=== PATIENT | female | born 1940 | race Caucasian/White ===

== ENCOUNTER 2016-12-13 15:47 | Emergency (ER) | payer MEDICARE, OTHER ==
[~2016-12-13] VITALS: Ht 162.6 cm; Wt 62.6 kg
--- NOTE | 2016-12-13 15:59 | NUR ---
Pt states she went to her neurologist due to increasing forgetfulness, wants to get CT. Pt denies CP, SOB, vision changes, MENDEZ, dizziness, n/v, no other complaints, no distress noted.
--- NOTE | 2016-12-13 17:10 | NUR ---
Patient discharged to home in stable conditon. Written and verbal after care instructions given. Patient verbalizes understanding of instructions. pt walked out of er unassisted with belongings at side...
[2016-12-13 17:11] VITALS: BP 117/73
== END 2016-12-13 17:12 | disposition home or self-care (01) ==
LOC: ER 15:51
DX: R41.3 Other amnesia (principal); I67.82 Cerebral ischemia; Z90.710 Acquired absence of both cervix and uterus; R51 Headache
CPT/HCPCS: 70450; A4663

== ENCOUNTER 2016-12-22 14:26 | Emergency (ER) | payer MEDICARE, OTHER ==
[~2016-12-22] VITALS: Ht 162.6 cm; Wt 59.0 kg
[2016-12-22 15:01] LABS: *BILIRUBIN,URIN NEGATIVE (NEGATIVE); *BLOOD, URINE 3+ (NEGATIVE); *CLARITY,URINE CLOUDY (CLEAR); *KETONES,URINE NEGATIVE (NEGATIVE); *UROBILINOGEN,URINE 0.2 E.U./dl (NORMAL); LEUKOCYTE ESTERASE ,URINE 3+ (NEGATIVE); NITRITE, URINE NEGATIVE (NEGATIVE); UGLUCOSE NEGATIVE (NEGATIVE)
[2016-12-22 15:17] LABS: *COLOR,URINE Brown (YELLOW); *PROTEIN,URINE 3+ (NEGATIVE)
[2016-12-22 15:18] LABS: BACTERIA,URINE MODERATE /HPF (NONE SEEN); RBC,URINE TNTC /HPF (0-3); SQUAMOUS EPITHELIAL CELL,UR MANY /HPF (NONE SEEN); WBC,URINE TNTC /HPF (0-3)
--- NOTE | 2016-12-22 15:26 | NUR ---
Patient discharged to home in stable conditon. Written and verbal after care instructions given. Patient verbalizes understanding of instructions.
[2016-12-22 15:27] VITALS: BP 117/85
== END 2016-12-22 15:29 | disposition home or self-care (01) ==
LOC: ER 14:26
DX: N39.0 Urinary tract infection, site not specified (principal)
CPT/HCPCS: 81001; 87086; 99284; A4663

== ENCOUNTER 2018-01-19 15:29 | Inpatient (IN) | payer MEDICARE, OTHER ==
[~2018-01-19] VITALS: Ht 162.6 cm; Wt 65.8 kg
[2018-01-19] MEDS ORDERED: [UNRECOGNIZED DRUG - REMARK] (15:46)
[2018-01-19 16:12] LABS: BASOPHILS # (AUTO) 0.1 K/uL (0.0-8.0); BASOPHILS % (AUTO) 0.9 % (0.0-2.0); EOSINOPHILS # (AUTO) 0.1 K/uL (0.0-0.7); EOSINOPHILS % (AUTO) 1.5 % (0.0-7.0); HEMOGLOBIN 14.3 g/dL (10.9-14.3); LYMPHOCYTES # (AUTO) 1.6 K/uL (20.0-40.0); LYMPHOCYTES % (AUTO) 25.8 % (20.5-51.5); MEAN CORPUSCULAR HEMOGLOBIN 32.9 uug (24.7-32.8); MEAN CORPUSCULAR HGB CONC 34 g/dL (32.3-35.6); MEAN CORPUSCULAR VOLUME 96.8 fL (75.5-95.3); MONOCYTES # (AUTO) 0.5 K/uL (2.0-10.0); MONOCYTES % (AUTO) 8.9 % (0.0-11.0); NEUTROPHILS # (AUTO) 3.8 K/uL (1.8-8.9); NEUTROPHILS % (AUTO) 62.9 % (38.5-71.5); PLATELET COUNT (AUTO) 258 K/uL (179-408); RED BLOOD CELL COUNT(AUTO) 4.34 MIL/uL (3.63-4.92)
[2018-01-19 16:25] LABS: ETHANOL < 3 MG/DL (0-0)
[2018-01-19 16:28] LABS: CARBON DIOXIDE 27 mmol/L (21-32); CHLORIDE 108 mmol/L (98-107); CREATININE 0.7 mg/dL (0.6-1.3); GLUCOSE 114 mg/dL (74-106); POTASSIUM 3.8 mmol/L (3.5-5.1); UREA NITROGEN, BLOOD 11 mg/dL (7-18)
--- NOTE | 2018-01-19 16:42 | NUR ---
A call to [facility] crisis team corporate event planner ETA of 45 min. receives. Addendum: 01/19/18 at 1643 by IVONE ETA of 45min. received.
[2018-01-19 16:44] LABS: ALANINE AMINOTRANSFERASE 27 U/L (14-59); ALKALINE PHOSPHATASE 67 U/L (50-136); ASPARTATE AMINOTRANSFERASE 19 U/L (15-37); BILIRUBIN,DIRECT 0.1 mg/dL (0.0-0.2); BILIRUBIN,TOTAL 0.5 mg/dL (0.2-1.0); TOTAL PROTEIN, SERUM 6.9 g/dL (6.4-8.2)
[2018-01-19 16:47] LABS: ACETAMINOPHEN < 2.0 ug/mL (10-30)
--- NOTE | 2018-01-19 17:55 | NUR ---
[facility] in to evaluate patient.
--- NOTE | 2018-01-19 18:08 | NUR ---
Transfer to med-surge room pending per marking room supervisor when bed and 1:1 sitter available after 1900.
--- NOTE | 2018-01-19 18:24 | NUR ---
After pt. placed on legal hold pt. agitated attempting to leave room AMA. pt's daughters at bedside. Security called and pt. escorted back to her room.
[2018-01-19] MEDS ORDERED: LORAZEPAM 2 MG/1 ML VIAL ONE (18:28)
[2018-01-19] MEDS ORDERED: LORAZEPAM 2 MG/1 ML VIAL IM ONE (18:30)
--- NOTE | 2018-01-19 19:10 | NUR ---
bedside report given to incoming R.N.
--- NOTE | 2018-01-19 20:09 | NUR ---
Pt. admitted to room 224 , under care of Dr. daly Belongs List completed. sitter at bedside. report was given to NO Guthrie
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
[2018-01-19 21:00] VITALS: BP 130/78
[2018-01-19] MEDS ORDERED: CLONAZEPAM 0.5 MG TABLET PO PRN (21:45)
[2018-01-19] MEDS ORDERED: MAG HYDROX/AL HYDROX/SIMETH 30 ML LIQUID UDC PO PRN (21:45)
[2018-01-19] MEDS ORDERED: MAGNESIUM HYDROXIDE 30 ML LIQUID UDC PO PRN (21:45)
--- NOTE | 2018-01-20 05:17 | NUR ---
Patient was awake for 30 mins around 0100. A/O x 3 but forgetful. She states "did they find out what was wrong with me"? Patient slept 8.5 hours. Sitter at bedside. No PRN's given. Vital signs stable. Safety and comfort measures maintained t/o shift. Good urine output. All needs met.
--- NOTE | 2018-01-20 06:35 | NUR ---
Daughter Sangeeta made aware of patient's hospitalization. Informed patient's daughter about her mothers belongings, she states that step sister Wendy will come and pick it up today. Part of her belongings are in the Nursing station, and part is at her room closet. Charge Nurse and MHU charge nurse made aware of this conversation I had with patients daughter Sangeeta. Will closely monitor.
[2018-01-20 08:39] VITALS: BP 127/53
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
[2018-01-20 11:19] LABS: *BILIRUBIN,URIN NEGATIVE (NEGATIVE); *BLOOD, URINE Trace-lysed (NEGATIVE); *CLARITY,URINE CLOUDY (CLEAR); *COLOR,URINE YELLOW (YELLOW); *KETONES,URINE NEGATIVE (NEGATIVE); *PROTEIN,URINE TRACE (NEGATIVE); *UROBILINOGEN,URINE 0.2 E.U./dl (NORMAL); LEUKOCYTE ESTERASE ,URINE 2+ (NEGATIVE); NITRITE, URINE POSITIVE (NEGATIVE); PH,URINE 5.5 (5.0-8.0); UGLUCOSE NEGATIVE (NEGATIVE)
[2018-01-20 11:25] LABS: BACTERIA,URINE MANY /HPF (NONE SEEN); SQUAMOUS EPITHELIAL CELL,UR FEW /HPF (NONE SEEN)
[2018-01-20 11:26] LABS: CALCIUM OXALATE CRYSTALS,UR FEW /HPF (NONE SEEN)
[2018-01-20 11:30] VITALS: BP 105/54
[2018-01-20 11:33] LABS: *AMPHETAMINE, URINE NEGATIVE (NEGATIVE); *BARBITURATE, URINE NEGATIVE (NEGATIVE); *CANNABINOID, URINE NEGATIVE (NEGATIVE); *COCCAINE, URINE NEGATIVE (NEGATIVE); *OPIATE, URINE NEGATIVE (NEGATIVE); *PHENCYCLIDINE SCREEN,URINE NEGATIVE (NEGATIVE)
--- NOTE | 2018-01-20 11:57 | NUR ---
GPS/RN- Patient continues easily irritable, labile, guarded, able to take PRN Klonopin with redirection continue to monitor, patient with AWOL risk behavior, continues with sitter .
[2018-01-20] MEDS ORDERED: CLONAZEPAM 0.5 MG TABLET PO ONE (15:00)
[2018-01-20] MEDS: SULFAMETH/TRIMETH 800/160 MG TABLET PO SCH ×2 (15:24→23:16)
[2018-01-20 15:46] VITALS: BP 146/76
--- NOTE | 2018-01-20 16:10 | NUR ---
GPS.RN - Patient continued to escalate, irritable angry, confused, forgetful, difficult to redirect. patient combative with sitter at this time, attempting to AWOL. PRN Klonopin not effective at this time Dr Clements notified orders received for Zyprexa 5mg IM once.
[2018-01-20] MEDS ORDERED: OLANZAPINE 10 MG VIAL IM ONE (16:15)
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
[2018-01-20] MEDS: QUETIAPINE FUMARATE 25 MG TABLET PO SCH ×2 (17:00→18:08)
--- NOTE | 2018-01-20 18:11 | NUR ---
GPS/RN- patient is less anxious, continues confused forgetful, disoriented, ambulating with assist to bathroom, patient unsteady, patient not aggressive, assisted to bed, falling asleep intermittently. Zyprexa IM effective, continue to monitor. patient has poor insight and judgement overestimates, poor impulse control.
--- NOTE | 2018-01-20 18:50 | NUR ---
TRANSFER TO ROOM 138A VIA W/C WITH HER BELONGING
[2018-01-20 19:30] VITALS: BP 122/59
--- NOTE | 2018-01-20 19:45 | NUR ---
RECEIVED PATIENT IN HER ROOM IN BED. SHE IS NOTED SLEEPING BUT AROUSABLE. SHE REFUSED TO ANSWER ANY QUESTION AND WENT BACK TO SLEEP. SAFETY WAS EMPHASIS. BED AT LOWEST POSITION WITH WHEELS LOCKED, BED ALARM ON AND FREQUENT ROUNDS.
[2018-01-20] MEDS ORDERED: QUETIAPINE FUMARATE 25 MG TABLET PO SCH ×2 (21:00)
--- NOTE | 2018-01-20 22:30 | NUR ---
PT WAS ABLE TO TAKE HER BACTRIM DS PO Q12HRS FOR UTI. SHE IS NOTED CALM AND PLEASANT. POOR HISTORIAN. WILL CONTINUE TO MONITOR.
[2018-01-21 07:30] VITALS: BP 152/63
[2018-01-21] MEDS: SULFAMETH/TRIMETH 800/160 MG TABLET PO SCH ×2 (08:20→21:00)
--- NOTE | 2018-01-21 15:12 | NUR ---
Initial Discharge Instructions: Patient currently resides at home with her 89-year-old and his /7 caregiver [[address] [place] [address]; [phone]]. Spoke with patient's daughter/DPOA, Sangeeta ([phone]) who states that the patient will not be able to return home. She expressed concern about placement options. KENDALL provided education about different placement options ([facility] vs SNF). Per Sangeeta, she would like to "defer to what the suggests." KENDALL will continue to collaborate with pt, family, and MD regarding most appropriate discharge plans. KENDALL will form a safe and proper discharge plan.
[2018-01-21 15:52] VITALS: BP 147/60
[2018-01-21] MEDS: QUETIAPINE FUMARATE 25 MG TABLET PO SCH (17:26)
[2018-01-21 19:56] VITALS: BP 145/71
[2018-01-21] MEDS: CLONAZEPAM 1 MG TABLET PO PRN (20:11)
[2018-01-21] MEDS ORDERED: OLANZAPINE 10 MG VIAL IM ONE (20:15)
--- NOTE | 2018-01-22 01:17 | NUR ---
Received to care pt walking around the unit, A&O x2-3, pt is confused, asking staff the same questions, pt states "why am I here?" "Where is my purse" I lost my keys" Pt refused to take her HS PO meds. Pt was aggressive with staff, wandering in and out of other pt's room, non-compliant, trying to leave the unit by pushing on the exit door. Pt step daughter Wendy was called in hopes that she could calm the patient down but she stated that she has already spoken to the pt several times. Pt continued to disrupt the unit so TO for IM zyprexa 5mg at 2017 was received, IM given, pt placed in a maria r-chair by the nursing station for safety and monitoring, pt proceeded to bang on the table and climb out of the maria r-chair. Pt placed back in maria r-chair, pt calmed down on a scale of 1-10 with 10 being the worst to a 4. Pt later went to the bathroom and proceeded to walk around the unit, appeals writer hoped that pt would go to bed. However pt eventually digressed back to the same behavior. Pt was placed back in the maria r-chair at nurse station. Pt is still up at this time trying to get out of the maria r-chair, banging on the table and demanding to go home.
[2018-01-22] MEDS: ZOLPIDEM 5 MG TABLET PO PRN (01:36)
[2018-01-22 07:30] VITALS: BP 155/67
--- NOTE | 2018-01-22 08:02 | NUR ---
Received patient in bed asleep, arousable. will monitor.
[2018-01-22] MEDS: SULFAMETH/TRIMETH 800/160 MG TABLET PO SCH ×2 (08:53→20:09)
[2018-01-22] MEDS: DIVALPROEX SPRINKLE 125 MG CAP.SPRINK PO SCH ×4 (10:49→16:59)
[2018-01-22 15:28] VITALS: BP 126/59
--- NOTE | 2018-01-22 15:50 | NUR ---
Patient with confusion asking why is she here and stated that she did not know what happen last night. She wanted to talk to her doctor. Continue to redirect patient. Will monitor.
[2018-01-22] MEDS: QUETIAPINE FUMARATE 25 MG TABLET PO SCH ×2 (16:35→16:59)
[2018-01-22] MEDS: CLONAZEPAM 1 MG TABLET PO PRN (20:10)
--- NOTE | 2018-01-22 20:11 | NUR ---
GPS:KLONOPIN 1 MG PO GIVEN FOR AGITATION.
[2018-01-22 20:32] VITALS: BP 160/86
[2018-01-22 21:10] VITALS: BP 139/82
[2018-01-22] MEDS ORDERED: OLANZAPINE 10 MG VIAL IM ONE (21:45)
--- NOTE | 2018-01-22 22:02 | NUR ---
GPS: PATIENT IS OUT OF CONTROL BEHAVIOR. PACING IN HALLWAY,GOING TO OTHER PATIENT'S ROOMS AND DISTURBING THEM, PUSHING STAFF. Dr. RICHARDS CALLED. RECEIVED ORDER ZYPREXA 5 MG IM STAT. FOR OUT OF CONTROL BEHAVIOR. ZYPREXA 5 MG IM XI STAT GIVEN PER Dr. RICHARDS. CONTINUE MONITORING FOR SAFETY.
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
--- NOTE | 2018-01-23 06:43 | NUR ---
GPS: RESTING IN BED QUIETLY.NO BEHAVIOR PROBLEM NOTED AT THIS TIME. SLEPT 4:30 HRS THROUGH THE NIGHT. REMAIN CONFUSED AND DISORIENTED. CONTINUE PLAN OF CARE.
[2018-01-23 07:30] VITALS: BP 136/52
[2018-01-23] MEDS: SULFAMETH/TRIMETH 800/160 MG TABLET PO SCH (08:38)
[2018-01-23] MEDS: DIVALPROEX SPRINKLE 125 MG CAP.SPRINK PO SCH ×3 (08:38→18:36)
--- NOTE | 2018-01-23 10:13 | NUR ---
Firearms Report: Commercial Center Manager completed and submitted [employer] Firearms Report for 5250 GD certification.
[2018-01-23] MEDS: QUETIAPINE FUMARATE 25 MG TABLET PO SCH ×2 (13:29→18:36)
[2018-01-23 15:14] VITALS: BP 118/59
--- NOTE | 2018-01-23 19:35 | NUR ---
RECEIVED PATIENT IN THE HALLWAY. SHE IS NOTED A/O X 1. FORGETFUL. SHE IS ABLE TO AMBULATE WITH STEADY GAIT AND ABLE TO MAKE HER NEEDS KNOWN. PATIENT IS NOTED LESS IRRITABLE, LESS DEMANDING. CONTINUE WANTING TO LEAVE THE FACILITY, CONTINUE ASKING FOR AND CONTINUE ASKING TO USE THE PHONE. PT IS SOMEHOW REDIRECTABLE BUT VERY FORGETFUL. ANXIOUS MOOD, LABILE BX. WAS NOTED. SAFETY WAS EMPHASIS. WILL CONTINUE TO MONITOR.
[2018-01-23] MEDS: CLONAZEPAM 1 MG TABLET PO PRN (19:56)
[2018-01-23 20:00] VITALS: BP 127/57
--- NOTE | 2018-01-23 20:00 | NUR ---
PATIENT WAS NOTED EASILY IRRITABLE, ANXIOUS, AGITATED. MULTIPLE REDIRECTION GIVEN, HOWEVER, INEFFECTIVE. KLONOPIN 0.5MG PO PRN WAS GIVEN. WILL CONTINUE TO MONITOR.
[2018-01-24 07:30] VITALS: BP 132/59
[2018-01-24] MEDS: DIVALPROEX SPRINKLE 125 MG CAP.SPRINK PO SCH ×3 (08:12→16:41)
[2018-01-24] MEDS: QUETIAPINE FUMARATE 25 MG TABLET PO SCH ×3 (08:12→16:41)
[2018-01-24] MEDS: CLONAZEPAM 1 MG TABLET PO PRN ×2 (09:50→20:04)
[2018-01-24 15:12] VITALS: BP 120/69
[2018-01-24 20:00] VITALS: BP 128/73
--- NOTE | 2018-01-24 20:00 | NUR ---
RECEIVED PATIENT IN THE HALLWAY. SHE IS NOTED A/O X 1. FORGETFUL, CONFUSED AND DISORGANIZED. SHE IS ABLE TO AMBULATE WITH STEADY GAIT AND ABLE TO MAKE HER NEEDS KNOWN. PATIENT IS NOTED LESS IRRITABLE. CONTINUE WANTING TO LEAVE THE FACILITY, CONTINUE ASKING FOR , FOR HER DAUGHTER AND CONTINUE ASKING TO USE THE PHONE TO CHECKS ON HER . PT IS SOMEHOW REDIRECTABLE BUT VERY FORGETFUL. PACING THE HALLWAY, INTRUSIVE, ANXIOUS MOOD, LABILE BX, FLIGHT OF IDEAS. HOWEVER, NO AGGRESSIVE/COMBATIVE BX NOTED AT THIS TIME. SAFETY WAS EMPHASIS. WILL CONTINUE TO MONITOR.
--- NOTE | 2018-01-24 20:10 | NUR ---
PATIENT NOTED PACING THE HALLWAY, ANXIOUS, AGITATED, FORGETFUL, KLONOPIN 1MG PO PRN WAS GIVEN. WILL CONTINUE TO MONITOR,
[2018-01-24] MEDS ORDERED: OLANZAPINE 10 MG VIAL IM ONE (23:45)
--- NOTE | 2018-01-25 00:05 | NUR ---
AT APPROX, 2300, ON 01/24/18, PATIENT WAS OBSERVED PACING THE HALLWAY, GOING INTO OTHER PATIENT'S ROOM, ANXIOUS, AGITATED, UNREDIRECTABLE. MULTIPLE REDIRECTION GIVEN, YET INEFFECTIVE. SHE CONTINUE SHAKING AND BANGING THE DOUBLE DOORS OF MAIN HALLWAY, GOING INTO OTHER PATIENT'S ROOM, AGGRESSIVE TOWARD STAFF (SCRATCHING STAFF) AND UNABLE TO BE REDIRECTED. DR. MEJIA WAS NOTIFY AT APPROX 2345 AND NEW ORDER WERE OBTAINED TO ADMINISTER ZYPREXA 5MG PO IM ONE TIME ONLY FOR SEVERE AGITATION. ORDER WAS NOTED AND WAS CARRIED OUT AT APPROX 0002. WILL CONTINUE TO MONITOR CLOSELY.
--- NOTE | 2018-01-25 01:15 | NUR ---
PATIENT NOTED LESS AGITATED, LESS ANXIOUS. CONTINUE CONFUSED AND FORGETFUL. WILL CONTINUE TO MONITOR CLOSELY.
--- NOTE | 2018-01-25 02:15 | NUR ---
PATIENT NOTED SLEEPING COMFORTABLE IN HER BED. WILL CONTINUE TO MONITOR CLOSELY.
[2018-01-25 07:30] VITALS: BP 112/70
[2018-01-25] MEDS: DIVALPROEX SPRINKLE 125 MG CAP.SPRINK PO SCH ×3 (08:42→16:33)
[2018-01-25] MEDS: QUETIAPINE FUMARATE 25 MG TABLET PO SCH ×3 (08:42→20:18)
[2018-01-25] MEDS ORDERED: CLONAZEPAM 1 MG TABLET PO PRN (12:15)
[2018-01-25] MEDS: SULFAMETH/TRIMETH 800/160 MG TABLET PO SCH ×3 (14:45→20:18)
[2018-01-25 15:35] VITALS: BP 114/75
[2018-01-25 17:54] LABS: BASOPHILS % (AUTO) 0.5 % (0.0-2.0); EOSINOPHILS # (AUTO) 0.1 K/uL (0.0-0.7); EOSINOPHILS % (AUTO) 2.3 % (0.0-7.0); HEMOGLOBIN 14.3 g/dL (10.9-14.3); LYMPHOCYTES # (AUTO) 1.8 K/uL (20.0-40.0); LYMPHOCYTES % (AUTO) 29.3 % (20.5-51.5); MEAN CORPUSCULAR HEMOGLOBIN 33.4 uug (24.7-32.8); MEAN CORPUSCULAR HGB CONC 34 g/dL (32.3-35.6); MEAN CORPUSCULAR VOLUME 97.8 fL (75.5-95.3); MONOCYTES # (AUTO) 0.5 K/uL (2.0-10.0); NEUTROPHILS # (AUTO) 3.6 K/uL (1.8-8.9); NEUTROPHILS % (AUTO) 58.9 % (38.5-71.5); PLATELET COUNT (AUTO) 246 K/uL (179-408); RED BLOOD CELL COUNT(AUTO) 4.29 MIL/uL (3.63-4.92); WHITE BLOOD COUNT (AUTO) 6.1 K/uL (3.8-11.8)
[2018-01-25 18:06] LABS: ALANINE AMINOTRANSFERASE 23 U/L (14-59); ALKALINE PHOSPHATASE 69 U/L (50-136); ASPARTATE AMINOTRANSFERASE 15 U/L (15-37); BILIRUBIN,TOTAL 0.5 mg/dL (0.2-1.0); CARBON DIOXIDE 31 mmol/L (21-32); CHLORIDE 108 mmol/L (98-107); CREATININE 0.9 mg/dL (0.6-1.3); GLUCOSE 98 mg/dL (74-106); MAGNESIUM 2.1 mg/dL (1.8-2.4); POTASSIUM 4.1 mmol/L (3.5-5.1); TOTAL PROTEIN, SERUM 6.9 g/dL (6.4-8.2); UREA NITROGEN, BLOOD 12 mg/dL (7-18)
[2018-01-25 20:00] VITALS: BP 156/64
--- NOTE | 2018-01-26 06:32 | NUR ---
REMAIN CALM AND COOPERATIVE.COMPLIANT WITH MEDS.SLEPT 7 HRS THROUGH THE NIGHT.NO AGITATION NOTED AT THIS TIME. CONTINUE PLAN OF CRE.
[2018-01-26 07:30] VITALS: BP 125/58
[2018-01-26] MEDS: SULFAMETH/TRIMETH 800/160 MG TABLET PO SCH (09:05)
[2018-01-26] MEDS: DIVALPROEX SPRINKLE 125 MG CAP.SPRINK PO SCH ×3 (09:05→17:23)
[2018-01-26] MEDS: QUETIAPINE FUMARATE 25 MG TABLET PO SCH ×3 (13:02→21:09)
--- NOTE | 2018-01-26 14:19 | NUR ---
DC Planning Note: SW spoke at length with pt's dtr, Sangeeta ([phone]) to discuss discharge planning. Educated dtr about MD's recommendation for temporary SNF Placement. Dtr agreeable and requested inquiries be sent to SNFs in the [place] Area. Per request, SW faxed inquiries to the following facilities: [facility] ([place]. [phone]; fax [phone]) [facility] ([place] [phone]; fax [phone]) [facility] ([place]. [phone]; fax [phone]) SW awaiting response from above mentioned facilities. SW will continue to follow-up.
[2018-01-26 16:42] VITALS: BP 166/79
[2018-01-26 19:51] VITALS: BP 141/66
[2018-01-27 07:30] VITALS: BP_SYST 111; BP_SYST 138; BP_DIAS 65; BP_DIAS 71
[2018-01-27] MEDS: DIVALPROEX SPRINKLE 125 MG CAP.SPRINK PO SCH ×3 (08:13→16:57)
[2018-01-27] MEDS: QUETIAPINE FUMARATE 25 MG TABLET PO SCH ×3 (12:05→20:08)
[2018-01-27 16:42] VITALS: BP 134/85
[2018-01-27 20:02] VITALS: BP 135/73
[2018-01-27] MEDS: ZOLPIDEM 5 MG TABLET PO PRN (21:13)
[2018-01-27] MEDS: CLONAZEPAM 0.5 MG TABLET PO PRN (23:12)
[2018-01-27] MEDS: ACETAMINOPHEN 325 MG TABLET PO PRN (23:45)
--- NOTE | 2018-01-28 06:39 | NUR ---
PT ONLY SLEPT 4.0 HRS DESPITE GIVEN WITH AMBIEN AND KLONOPIN. WAS RESTLESS, VERY CONFUSED, ASKING ABOUT HER . COMPLIANT WITH MEDS.
[2018-01-28 07:30] VITALS: BP 119/61
[2018-01-28] MEDS: DIVALPROEX SPRINKLE 125 MG CAP.SPRINK PO SCH ×3 (08:14→17:01)
[2018-01-28] MEDS: QUETIAPINE FUMARATE 25 MG TABLET PO SCH ×3 (12:01→20:41)
[2018-01-28] MEDS: CLONAZEPAM 0.5 MG TABLET PO PRN (15:44)
[2018-01-28 21:34] VITALS: BP 127/77
[2018-01-28] MEDS: ZOLPIDEM 5 MG TABLET PO PRN (22:45)
[2018-01-28] MEDS: ACETAMINOPHEN 325 MG TABLET PO PRN (22:45)
[2018-01-29 07:30] VITALS: BP 121/64
--- NOTE | 2018-01-29 09:04 | NUR ---
Discharge Note: Patient will be discharged to [facility] [[address] [place] [address]; ] via ambulance before lunch. Please arrange an ambulance for this patient. Spoke with Lasha at the facility who states they are ready to accept the patient today. Spoke with pt's daughter/DPOA, Sangeeta Robertson ([phone]) who is aware and agreeable with discharge plans. Patient is alert and oriented x1, is confused, and is cooperative. Patient will follow-up at the facility with Dr. Terry (Roving Winder) and Dr. Barbosa (Psychiatrist). Pt's family was referred to [facility] ([phone]) for long-term assisted living placement for the patient post-discharge from SNF.
[2018-01-29] MEDS: DIVALPROEX SPRINKLE 125 MG CAP.SPRINK PO SCH ×2 (09:14→12:49)
--- NOTE | 2018-01-29 09:45 | NUR ---
Gps/Gun Perforator Loader- Called Sangeeta(daughter) , claimed she does not remember her Mon receiving flu and pneumonia vaccine, gave ok, to give vaccinations, no known allergy noted. Daughter aware of dc. planning to [facility].Patient had no belongings noted except her clothes. Denies discomfort, was informed of her discharge plan today. Patient confused, forgetful , needed reminder and redirections. Discharge arranged for ambulance pick and shovel man at noon per Risk Control Product Liability Director.
[2018-01-29] MEDS: QUETIAPINE FUMARATE 25 MG TABLET PO SCH (12:49)
[2018-01-29] MEDS ORDERED: PNEUMOCOCCAL 23-VAL P-SAC VAC 0.5 ML VIAL IM ONE (13:00)
[2018-01-29] MEDS ORDERED: INFLUENZA VACCINE 2018-2019 0.5 ML DISP.SYRIN IM ONE (13:00)
--- NOTE | 2018-01-29 13:00 | NUR ---
Gps/Rn Lpn Lvn- Discharged to [facility] via ambulance, Report was given to Yolanda Rodriguez. All belongings was given,returned back to patient, no discomfort, no complaints noted. Discharged in no distress, no complaints noted..
== END 2018-01-29 13:10 | DRG 885 ==
LOC: ER 15:31 → GPSOV 19:42 → GPS 01-20 18:47
PROVIDERS: ADMIT Psychiatry & Neurology Psychiatry; ATTEND Family Medicine
DX: F23 Brief psychotic disorder (principal); F03.91 Unspecified dementia, unspecified severity, with behavioral disturbance; F02.81 Dementia in other diseases classified elsewhere, unspecified severity, with behavioral disturbance; Z90.710 Acquired absence of both cervix and uterus; Z91.19 Patient's noncompliance with other medical treatment and regimen; E88.81 Metabolic syndrome and other insulin resistance; G31.9 Degenerative disease of nervous system, unspecified; R82.90 Unspecified abnormal findings in urine
CPT/HCPCS: 36415; 80307; 83735; 85025; 90686; 90732; 93005; A4663; G0480; G0480-TC; J2060; J2358

== ENCOUNTER 2018-02-17 17:41 | Inpatient (IN) | payer MEDICARE, OTHER ==
[~2018-02-17] VITALS: Ht 162.6 cm; Wt 64.4 kg
[~2018-02-17 17:41] MED LIST: [UNRECOGNIZED DRUG - REMARK]
[2018-02-17] MEDS ORDERED: DOCU-141 PO (18:03)
[2018-02-17] MEDS ORDERED: [UNRECOGNIZED DRUG - CODE] PO (18:04)
[2018-02-17] MEDS ORDERED: TEMA7.5C PO (18:04)
[2018-02-17] MEDS ORDERED: ACET-2154 PO (18:04)
[2018-02-17] MEDS ORDERED: DIVA250T4 PO (18:04)
[2018-02-17] MEDS ORDERED: NITR100C13 PO (18:04)
[2018-02-17] MEDS ORDERED: QUET25TA PO ×2 (18:04)
[2018-02-17] MEDS ORDERED: MEMA5TAB PO (18:04)
[2018-02-17] MEDS ORDERED: LORA0.5T PO (18:04)
[2018-02-17 18:07] LABS: BASOPHILS # (AUTO) 0.1 K/uL (0.0-8.0); BASOPHILS % (AUTO) 0.7 % (0.0-2.0); EOSINOPHILS # (AUTO) 0.1 K/uL (0.0-0.7); EOSINOPHILS % (AUTO) 1.3 % (0.0-7.0); HEMATOCRIT 39.1 % (31.2-41.9); HEMOGLOBIN 13.3 g/dL (10.9-14.3); LYMPHOCYTES # (AUTO) 1.7 K/uL (20.0-40.0); LYMPHOCYTES % (AUTO) 23.4 % (20.5-51.5); MEAN CORPUSCULAR HEMOGLOBIN 32.8 uug (24.7-32.8); MEAN CORPUSCULAR HGB CONC 34 g/dL (32.3-35.6); MEAN CORPUSCULAR VOLUME 96.6 fL (75.5-95.3); MONOCYTES # (AUTO) 0.5 K/uL (2.0-10.0); MONOCYTES % (AUTO) 7.6 % (0.0-11.0); NEUTROPHILS # (AUTO) 4.9 K/uL (1.8-8.9); PLATELET COUNT (AUTO) 300 K/uL (179-408); RED BLOOD CELL COUNT(AUTO) 4.05 MIL/uL (3.63-4.92); WHITE BLOOD COUNT (AUTO) 7.2 K/uL (3.8-11.8)
[2018-02-17 18:16] LABS: CARBON DIOXIDE 29 mmol/L (21-32); CHLORIDE 105 mmol/L (98-107); CREATININE 0.7 mg/dL (0.6-1.3); GLUCOSE 95 mg/dL (74-106); POTASSIUM 3.9 mmol/L (3.5-5.1); UREA NITROGEN, BLOOD 13 mg/dL (7-18)
[2018-02-17 18:22] LABS: ALANINE AMINOTRANSFERASE 16 U/L (14-59); ALKALINE PHOSPHATASE 57 U/L (50-136); ASPARTATE AMINOTRANSFERASE 10 U/L (15-37); BILIRUBIN,DIRECT < 0.1 mg/dL (0.0-0.2); BILIRUBIN,TOTAL 0.3 mg/dL (0.2-1.0); TOTAL PROTEIN, SERUM 6.8 g/dL (6.4-8.2)
[2018-02-17 18:23] LABS: ACETAMINOPHEN < 2.0 ug/mL (10-30)
[2018-02-17 18:30] LABS: ETHANOL 4 MG/DL (0-0)
--- NOTE | 2018-02-17 18:40 | NUR ---
Call for report and as informed by Shira maddox R.N. with change of shift coming pt. will be admitted by buyer agent. Dr. contreras and ok. Addendum: 02/17/18 at 1859 by IVONE Report should be call past 1929.
--- NOTE | 2018-02-17 19:04 | NUR ---
Bedside report given to incoming rn.
--- NOTE | 2018-02-17 19:44 | NUR ---
Pt. admitted to MHU, under care of Dr. Clements/INDRA Diagnosis: Psychosis pt on 5150 hold DTO/GD. Belongs List completed. MRSA swab done. Report given to Vero.
[2018-02-17] MEDS ORDERED: OLANZAPINE 10 MG VIAL IM ONE (20:45)
[2018-02-17] MEDS ORDERED: MAGNESIUM HYDROXIDE 30 ML LIQUID UDC PO PRN (21:30)
[2018-02-17] MEDS ORDERED: MAG HYDROX/AL HYDROX/SIMETH 30 ML LIQUID UDC PO PRN (21:30)
[2018-02-17] MEDS ORDERED: ACETAMINOPHEN 325 MG TABLET PO PRN (21:30)
[2018-02-17] MEDS ORDERED: DIVALPROEX 250 MG TABLET.DR PO SCH (23:15)
[2018-02-17] MEDS: DOCUSATE SODIUM 100 MG CAPSULE PO SCH (23:15)
[2018-02-17] MEDS ORDERED: ACETAMINOPHEN 325 MG TABLET PO SCH (23:15)
[2018-02-17] MEDS ORDERED: ALUMINUM HYDROXIDE PO SCH (23:15)
[2018-02-17] MEDS: NITROFURANTOIN/NITROFURAN MAC 100 MG CAPSULE PO SCH (23:30)
[2018-02-17] MEDS ORDERED: DIVALPROEX 250 MG TABLET.DR PO ONE (23:30)
--- NOTE | 2018-02-18 06:10 | NUR ---
Received pt to care in wheelchair from ER, pt refused to get out of the wheelchair and demanded to know why she was on the unit. Pt refused to sign any paperwork or comply with admission. Pt was very agitated, uncooperative, hostile, verbally abusive, yelling and combative. Pt kept banging on the unit exit doors trying to get out. Pt could not be redirected. Pt states that she "needs to go home and check on her ". Pt daughter was called and pt threw the telephone after speaking with her. Pt also spoke with Andry, her caregiver. Pt received 0.5ml IM zyprexa at 2049. Pt went to bed approximately 1 hour after shot. Pt woke up 2-3 hours later. Pt was very clam and told the staff that she was "not going to worry about her anymore" and get "herself into trouble or upset other people". Pt was confused when senior grant writer probed her about how she came to the hospital. Pt states that she "came here with her the girl in her room" referring to her MHU roommate. Pt is labile and confused. A&O x1.
[2018-02-18 07:30] VITALS: BP 132/75
[2018-02-18] MEDS ORDERED: MAG30ORA PO (09:24)
[2018-02-18] MEDS ORDERED: MAGN400O6 PO (09:24)
[2018-02-18] MEDS: DOCUSATE SODIUM 100 MG CAPSULE PO SCH (10:04)
[2018-02-18] MEDS: NITROFURANTOIN/NITROFURAN MAC 100 MG CAPSULE PO SCH ×2 (10:04→21:58)
[2018-02-18] MEDS: QUETIAPINE FUMARATE 25 MG TABLET PO SCH ×2 (12:17→17:00)
[2018-02-18] MEDS: DIVALPROEX 250 MG TABLET.DR PO SCH ×3 (12:17→17:00)
[2018-02-18] MEDS: CLONAZEPAM 0.5 MG TABLET PO PRN (12:17)
[2018-02-18] MEDS ORDERED: OLANZAPINE 10 MG VIAL IM ONE (12:30)
--- NOTE | 2018-02-18 14:56 | NUR ---
Initial Discharge Note: printed circuit board reworker has reviewed this patients psychosocial dated 01/21/2018 and I can attest to the accuracy of this information therein. The following changes have been made including patient new residence of [facility] memory care unit [[address] [place] [address]; ]. Patient has been living at facility since recent discharge from [facility] in middle of January. Patient is AxOx0 and is very confused and disoriented. Patient affect is flat and mood labile. Patient is easily irritable and constantly asking to "go home" and stand by the door. Patient denies suicidal or homicidal ideations. Patient judgement and impulse control are impaired; patient insight is limited. printed circuit board reworker called and spoke with Brown, residential director at [facility], who states that patient is welcomed back when ready for discharge. Per Brown, she will need to do a reassessment of patient before patient discharges. printed circuit board reworker will continue to collaborate with patient family, MD, and facility on a safe and proper discharge.
--- NOTE | 2018-02-18 15:47 | NUR ---
Group Activity Note: Patients were asked to listen to music and engage in conversation about their favorite music/genre of music/and memories they have of music. Subjective: "I don't want to listen to music...I want to go home to my ." "My car is going to get towed." Objective: Patient did not participate in the activity; however, she was present for 30 minutes. Patient's thought process was perseverative on issues mentioned above. Assessment: Patient's short-term memory seems to be impaired. Patient required constant redirection throughout group and was difficult to redirect. Patient needs constant reassurance. Plan: Encourage group attendance as scheduled.
--- NOTE | 2018-02-18 16:07 | NUR ---
Firearms Report: Transformer Coil Winder completed and submitted [employer] Firearms Report for 5150 DTO and GD certification.
[2018-02-18 16:25] VITALS: BP 124/68
--- NOTE | 2018-02-18 18:33 | NUR ---
patient has been agitated all shift spitting out medications, kicking front door ,coming behind nursing station and in charting room using telephone 7 times calling and daycare provider, fighting nurses and house keeping,patient received Zyprexa 5mg at 12 30 did not touch her manic phase still walking around unit all shift trying to escape, patient re directed without any change in her behavior patient needs stronger medications.
[2018-02-18 19:30] VITALS: BP 145/83
[2018-02-18] MEDS: TEMAZEPAM 7.5 MG CAPSULE PO PRN (21:58)
[2018-02-19 07:30] VITALS: BP 112/53
[2018-02-19] MEDS: DIVALPROEX 250 MG TABLET.DR PO SCH ×3 (08:28→17:37)
[2018-02-19] MEDS: DOCUSATE SODIUM 100 MG CAPSULE PO SCH (08:28)
[2018-02-19] MEDS: QUETIAPINE FUMARATE 25 MG TABLET PO SCH ×2 (08:28→17:37)
[2018-02-19 16:24] VITALS: BP 126/65
--- NOTE | 2018-02-19 17:45 | NUR ---
Gps/Heater Tender- Patient noted crying, claimed she needs to go home, missing her , patient was reassured. Encouraged to eat her dinner. Compliant with her afternoon medications, safety reviewed and emphasized.
[2018-02-19] MEDS: CLONAZEPAM 0.5 MG TABLET PO PRN (18:48)
[2018-02-19 20:00] VITALS: BP 141/70
--- NOTE | 2018-02-19 20:00 | NUR ---
PT SEEN AMULATING DOWN HALWAYS AND COMMUNICATING WITH STAFF. NEEDS FREQUENT REDIRECTION AND REORIENTATION TO PLACE. NO S/S OF ACUTE DISTRESS. PT REMINDED OF PLAN OF CARE INCLUDING SAFETY PRECUATIONS. ENCOURAGED ON DISTRACTION TECHNIQUES SUCH WATCHING IN ACTIVITY ROOM AND EATING ICE CREAM. WILL CONTINUE TO MONITOR.
--- NOTE | 2018-02-19 21:00 | NUR ---
SITTER NOW WITH PT D/T SAFETY MEASURES AND REDIRECTION.
[2018-02-19] MEDS: TEMAZEPAM 7.5 MG CAPSULE PO PRN (23:36)
--- NOTE | 2018-02-20 06:00 | NUR ---
Pt able to sleep up to 5 hours. Sitter at bedside able to assist with safety and redirection. No s/s of acute distress present.
[2018-02-20 07:30] VITALS: BP 121/61
[2018-02-20] MEDS: DIVALPROEX 250 MG TABLET.DR PO SCH ×3 (08:30→16:36)
[2018-02-20] MEDS: DOCUSATE SODIUM 100 MG CAPSULE PO SCH (08:30)
[2018-02-20] MEDS: QUETIAPINE FUMARATE 25 MG TABLET PO SCH ×2 (08:30→16:36)
[2018-02-20] MEDS: CLONAZEPAM 0.5 MG TABLET PO PRN (12:23)
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
[2018-02-20] MEDS ORDERED: OLANZAPINE 10 MG VIAL IM ONE (15:15)
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
--- NOTE | 2018-02-20 15:20 | NUR ---
Gps/Smart Energy Specialist-Order received from Dr Clements by Charge Nurse, ,Zyprexa 5 mg IM was administered to her LUOQ left buttock for increased agitation . Continue to monitor safety. Kept on 1:1 Nursing supervision, unpredictable behavior.
--- NOTE | 2018-02-20 15:28 | NUR ---
1:1 SITTER ORDERED FOR PT.
[2018-02-20 15:58] VITALS: BP 111/68
--- NOTE | 2018-02-20 18:07 | NUR ---
Gps/Casting Operator- Patient remains with 1:1 Nursing supervision, awol risk, pushing front door, tried to escape when letting visitors in. Staffs made aware , instructed close supervision on the patient .
[2018-02-20 22:35] VITALS: BP 109/60
[2018-02-21 06:58] LABS: BASOPHILS # (AUTO) 0.1 K/uL (0.0-8.0); EOSINOPHILS # (AUTO) 0.2 K/uL (0.0-0.7); EOSINOPHILS % (AUTO) 3.7 % (0.0-7.0); HEMATOCRIT 37.6 % (31.2-41.9); HEMOGLOBIN 12.8 g/dL (10.9-14.3); LYMPHOCYTES # (AUTO) 2.2 K/uL (20.0-40.0); LYMPHOCYTES % (AUTO) 37.2 % (20.5-51.5); MEAN CORPUSCULAR HGB CONC 34 g/dL (32.3-35.6); MEAN CORPUSCULAR VOLUME 96.6 fL (75.5-95.3); MONOCYTES # (AUTO) 0.6 K/uL (2.0-10.0); MONOCYTES % (AUTO) 9.4 % (0.0-11.0); NEUTROPHILS # (AUTO) 2.9 K/uL (1.8-8.9); NEUTROPHILS % (AUTO) 48.7 % (38.5-71.5); PLATELET COUNT (AUTO) 236 K/uL (179-408); RED BLOOD CELL COUNT(AUTO) 3.89 MIL/uL (3.63-4.92); WHITE BLOOD COUNT (AUTO) 5.9 K/uL (3.8-11.8)
[2018-02-21 07:27] LABS: CARBON DIOXIDE 32 mmol/L (21-32); CHLORIDE 107 mmol/L (98-107); CREATININE 0.7 mg/dL (0.6-1.3); GLUCOSE 77 mg/dL (74-106); POTASSIUM 3.9 mmol/L (3.5-5.1); UREA NITROGEN, BLOOD 14 mg/dL (7-18)
[2018-02-21 07:30] VITALS: BP 114/58
[2018-02-21] MEDS: DIVALPROEX 250 MG TABLET.DR PO SCH ×3 (08:29→17:01)
[2018-02-21] MEDS: QUETIAPINE FUMARATE 25 MG TABLET PO SCH ×3 (08:29→17:01)
[2018-02-21] MEDS: DOCUSATE SODIUM 100 MG CAPSULE PO SCH (08:29)
[2018-02-21] MEDS: CLONAZEPAM 0.5 MG TABLET PO PRN ×2 (12:15→20:57)
[2018-02-21 15:37] VITALS: BP 103/46
--- NOTE | 2018-02-21 17:13 | NUR ---
Gps/Software Design Analyst- Sleeping soundly this pm, had been redirectable this Safety continue to emphasized. no agitations noted, sitter remains w/ patient for safety, needing reorientation from time to time, meds.compliant.
--- NOTE | 2018-02-21 19:50 | NUR ---
RECEIVED PATIENT IN THE DAY ROOM WATCHING TV. SHE IS NOTED A/O X 1. SHE IS ABLE TO AMBULATE WITH STEADY GAIT AND ABLE TO MAKE HER NEEDS KNOWN. SHE IS NOTED WITH FLIGHT OF IDEAS, CONFUSED AND DISORGANIZED. IMPAIRED INSIGHT AND JUDGMENT NOTED TO [facility] SAFETY WAS EMPHASIS. PATIENT WILL CONTINUE ON 1:1 SUPERVISION FOR SAFETY PRECAUTION.
[2018-02-21 20:39] VITALS: BP 125/54
--- NOTE | 2018-02-21 21:14 | NUR ---
PATIENT NOTED RESTLESS, PACING IN HER ROOM, ANXIOUS. KLONOPIN 0.5 MG PO PRN WAS GIVEN FOR ANXIOUS BX. WILL CONTINUE ON 1:1 SUPERVISION FOR SAFETY.
[2018-02-21] MEDS: TEMAZEPAM 7.5 MG CAPSULE PO PRN (23:02)
[2018-02-22 07:30] VITALS: BP 130/65
[2018-02-22] MEDS: CLONAZEPAM 0.5 MG TABLET PO PRN ×2 (08:03→20:49)
[2018-02-22 08:35] LABS: *BILIRUBIN,URIN NEGATIVE (NEGATIVE); *BLOOD, URINE Trace-lysed (NEGATIVE); *CLARITY,URINE SLIGHTLY CLOUDY (CLEAR); *COLOR,URINE LIGHT YELLOW (YELLOW); *KETONES,URINE NEGATIVE (NEGATIVE); *PROTEIN,URINE NEGATIVE (NEGATIVE); *UROBILINOGEN,URINE 0.2 E.U./dl (NORMAL); LEUKOCYTE ESTERASE ,URINE 2+ (NEGATIVE); NITRITE, URINE NEGATIVE (NEGATIVE); PH,URINE 7.5 (5.0-8.0); UGLUCOSE NEGATIVE (NEGATIVE)
[2018-02-22 08:40] LABS: BACTERIA,URINE MODERATE /HPF (NONE SEEN); RBC,URINE 0-3 /HPF (0-3); SQUAMOUS EPITHELIAL CELL,UR FEW /HPF (NONE SEEN); WBC,URINE 50-80 /HPF (0-3)
[2018-02-22] MEDS: DOCUSATE SODIUM 100 MG CAPSULE PO SCH (08:50)
[2018-02-22] MEDS: DIVALPROEX 250 MG TABLET.DR PO SCH ×3 (08:50→17:16)
[2018-02-22] MEDS: QUETIAPINE FUMARATE 25 MG TABLET PO SCH ×3 (08:50→17:16)
--- NOTE | 2018-02-22 10:26 | NUR ---
DR CHRISTIANSEN IS AWARE OF UA RESULTS, NO NEW ORDERS. STATES WILL WAIT FOR C/S RESULTS.
[2018-02-22 15:48] VITALS: BP 114/51
--- NOTE | 2018-02-22 20:00 | NUR ---
RECEIVED PATIENT IN THE HALLWAY. SHE CONTINUE ON 1:1 SUPERVISION FOR SAFETY. SHE IS NOTED A/O X 1. SHE IS ABLE TO AMBULATE WITH STEADY GAIT AND ABLE TO MAKE HER NEEDS KNOWN. SHE IS NOTED PACING THE HALLWAY, HYPERVERBAL, ARGUMENTATIVE. SHE CONTINUE ASKING FOR HER CONTINUE ASKING TO GO HOME. KLONOPIN 0.5MG PO PRN WAS OFFERED; HOWEVER, PATIENT REFUSED, AND THREW WATER IN THE FLOOR. WILL CONTINUE TO REDIRECT PATIENT.
--- NOTE | 2018-02-22 20:50 | NUR ---
PATIENT CONTINUE IRRITABLE, PACING THE HALLWAY, ARGUMENTATIVE. MULTIPLE REDIRECTION GIVEN. PATIENT WAS ABLE TO TAKE KLONOPIN 0.5MG PO PRN. WILL CONTINUE TO MONITOR.
[2018-02-22 20:55] VITALS: BP 118/62
[2018-02-23] MEDS: TEMAZEPAM 7.5 MG CAPSULE PO PRN (01:54)
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
--- NOTE | 2018-02-23 06:48 | NUR ---
PATIENT SLEPT FOR APPROX 1.30 HRS THROUGH THE NIGHT. CONTINUE SUN DOWNING. WILL CONTINUE TO MONITOR.
[2018-02-23] MEDS: LEVOTHYROXINE SODIUM 25 MCG TABLET PO SCH (07:00)
[2018-02-23 07:30] VITALS: BP 149/73
[2018-02-23] MEDS: DIVALPROEX 250 MG TABLET.DR PO SCH ×3 (09:59→16:41)
[2018-02-23] MEDS: DOCUSATE SODIUM 100 MG CAPSULE PO SCH (09:59)
[2018-02-23] MEDS: QUETIAPINE FUMARATE 25 MG TABLET PO SCH ×2 (09:59→16:41)
[2018-02-23] MEDS: CLONAZEPAM 0.5 MG TABLET PO PRN (10:25)
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
--- NOTE | 2018-02-23 16:24 | NUR ---
Discharge Planning Note: Dust Box Worker spoke at length with patient's daughter, Sangeeta Green ([phone]) to discuss discharge planning and patient's prognosis. Informed pt's daughter that patient will discharge this week, daughter agreeable. KENDALL placed call to Setfania in Admissions at [facility] ([phone]) to arrange for facility to come assess the patient. SW left message and will continue to follow-up.
[2018-02-23 16:48] VITALS: BP 90/50
[2018-02-23 20:45] VITALS: BP 116/62
[2018-02-24] MEDS: LEVOTHYROXINE SODIUM 25 MCG TABLET PO SCH (06:04)
[2018-02-24 07:30] VITALS: BP 115/64
[2018-02-24] MEDS: DIVALPROEX 250 MG TABLET.DR PO SCH ×3 (08:15→16:28)
[2018-02-24] MEDS: QUETIAPINE FUMARATE 25 MG TABLET PO SCH ×3 (08:15→16:28)
[2018-02-24] MEDS: DOCUSATE SODIUM 100 MG CAPSULE PO SCH (08:15)
--- NOTE | 2018-02-24 12:06 | NUR ---
Discharge Planning: workers compensation specialist placed another phone call Stefania in Admissions at [facility] ([phone]) to arrange for facility to come assess the patient. workers compensation specialist left message with front line leader who stated she would send an email to Stefania. workers compensation specialist will continue to follow-up.
[2018-02-24 17:00] VITALS: BP 134/64
--- NOTE | 2018-02-24 18:38 | NUR ---
GPS: Nursing Notes: Destructive Behavior to Other: Patient is restless, poor anger management, confused, disoriented, impaired judgment, overly disruptive by getting into the nursing station and trying to strike out at staff and trying to threw the charts on the floor, trying to throw the computer on the floor, when trying to redirect her, patient tried to bite and hit staff when she was in the dinning room. Also, she was grabbing and tried to threw the chairs at staff, loud and angry affect, unable to be redirected, Dr. Clements pageiraida at this time, continue with 1:1 sitter for safety, continue with treatment plan.
--- NOTE | 2018-02-24 18:55 | NUR ---
GPS: Nursing Notes: Thought Disorder: Patient is awake and responding to her name, believes that she is leaving, "I am going home today..", patient became calm and she was crying at this time, Dr. Clements called back, but patient did not need the chemical restraint at this time, Dr. Clements said to call him if we need him, continue with 1:1 sitter for safety, continue to monitor patient for safety, unable to formulate a viable plan for self care, continue with treatment plan.
[2018-02-24 20:23] VITALS: BP 130/64
[2018-02-24] MEDS: NITROFURANTOIN/NITROFURAN MAC 100 MG CAPSULE PO SCH (21:32)
[2018-02-24] MEDS: CLONAZEPAM 0.5 MG TABLET PO PRN (21:52)
--- NOTE | 2018-02-24 21:54 | NUR ---
gps: patient c/o anxiety. Klonopin 0.5 mg po given.
[2018-02-25] MEDS: LEVOTHYROXINE SODIUM 25 MCG TABLET PO SCH (06:30)
--- NOTE | 2018-02-25 06:49 | NUR ---
GPS: REMAIN CONFUSED AND DISORIENTED. CONTINUE ON 1:1 SITTER @ BEDSIDE FOR SAFETY.PATIENT SLEPT FOR APPROX 5 HRS THROUGH THE NIGHT. CONTINUE SUN DOWNING. WILL CONTINUE TO MONITOR.
[2018-02-25 07:30] VITALS: BP 139/64
[2018-02-25] MEDS: DOCUSATE SODIUM 100 MG CAPSULE PO SCH (08:16)
[2018-02-25] MEDS: QUETIAPINE FUMARATE 25 MG TABLET PO SCH ×3 (08:17→16:29)
[2018-02-25] MEDS: DIVALPROEX 250 MG TABLET.DR PO SCH ×3 (08:17→16:28)
[2018-02-25] MEDS: NITROFURANTOIN/NITROFURAN MAC 100 MG CAPSULE PO SCH ×2 (08:17→20:45)
[2018-02-25] MEDS: CLONAZEPAM 0.5 MG TABLET PO PRN ×3 (10:56→20:45)
--- NOTE | 2018-02-25 11:29 | NUR ---
Discharge Planning: farmworker grain placed another phone call to Stefania in Admissions at [facility] ([phone]) to arrange for facility to come assess the patient. farmworker grain left message with front office specialist who stated she would send another email to Stefania. farmworker grain informed [facility] about pending discharge. farmworker grain will continue to follow-up.
--- NOTE | 2018-02-25 13:10 | NUR ---
Patient easily get irritated, anxious and moving all the time despite of encouragement and education. Ativan PRN given. will continue monitor
--- NOTE | 2018-02-25 13:51 | NUR ---
Discharge Plan: Dog Trainer spoke with patient's daughter, Sangeeta Green ([phone]) to discuss discharge planning and patient's prognosis. Informed pt's daughter of pending discharge.
--- NOTE | 2018-02-25 14:05 | NUR ---
Patient continue signs of confusion. Continue to refuse medication. Encourage and education given with good effect. Continue 1:1 sitter.Continue monitoring behavioral problem. will continue monitor
--- NOTE | 2018-02-25 14:40 | NUR ---
Activity group Note: Patients were asked to participate in a [id number] decorating activity where they decorate their pumpkin and then are asked to share it with the group. Subjective: --- Objective: Patient did not attend. Assessment: Patient needs encouragement to participate in group activity and engage with peers. Plan: quality worker will encourage group attendance as scheduled. quality worker will continue to provide emotional support and guidance in he;ping patient become more engaged with activities and peers.
[2018-02-25 20:48] VITALS: BP 119/60
--- NOTE | 2018-02-26 05:51 | NUR ---
When poem writer arrived on shift, pt sleeping in bed with 1:1 sitter. When pt woke up she was req to leave U, stating that she is on a "ship", looking for her . Pt reoriented and was allowed to call her . Pt left message on voicemail stating "can you please come to the ship/hotel", pt believes that she is on a cruise ship. Pt complied with taking her medication. Pt slept intermittently throughout the night. I will continue to monitor.
[2018-02-26] MEDS: LEVOTHYROXINE SODIUM 25 MCG TABLET PO SCH (06:57)
[2018-02-26 08:00] VITALS: BP 145/67
[2018-02-26] MEDS: QUETIAPINE FUMARATE 25 MG TABLET PO SCH ×4 (08:36→21:51)
[2018-02-26] MEDS: NITROFURANTOIN/NITROFURAN MAC 100 MG CAPSULE PO SCH ×2 (08:36→21:51)
[2018-02-26] MEDS: DIVALPROEX 250 MG TABLET.DR PO SCH ×3 (08:36→17:13)
[2018-02-26] MEDS: DOCUSATE SODIUM 100 MG CAPSULE PO SCH (08:36)
[2018-02-26] MEDS: CLONAZEPAM 0.5 MG TABLET PO PRN ×2 (15:10→15:20)
--- NOTE | 2018-02-26 15:10 | NUR ---
Samra has been very agitated, confused, screams and continuously wanting to go home to check oh her and son. Offered Samra the telephone to call family member but no one picks up which made her more agitated. Offered Klonopin but refused and screamed stated she is not a pill person. Sitter is with pt. Will continue to monitor.
[2018-02-26] MEDS ORDERED: OLANZAPINE 10 MG VIAL IM ONE (15:15)
--- NOTE | 2018-02-26 15:36 | NUR ---
PT IS AGITATED, ATTEMPTS TO ALOW, PUSHING DOORS AGGRESSIVELY, DOES NOT LISTEN TO REDIRECTIONS. PT WAS PUSHING A CHAIR AGAINS THE WINDOW, SCRATCHED A FLOW FLOOR ATTENDANT (LUIZA SUMMERS) ON HER HAND. PT IS CRYING AND DEMANDS TO BE LET OUT, SAYS SHE WILL WALK HOME. DR CAMERON WAS CALLED. ORDER FOR ZYPREXA 5MG IM ONE TIME WAS RECEIVED. AND GIVEN. PT IS STILL UPSET AND WOULD NOT LISTEN TO EXPLANATIONS.
[2018-02-26 16:00] VITALS: BP 106/48
--- NOTE | 2018-02-26 16:29 | NUR ---
Zyprexa injection effective, pt eyes closed, resting comfortably. will cont to monitor.
--- NOTE | 2018-02-26 19:50 | NUR ---
RECEIVED PATIENT IN HER ROOM IN BED ASLEEP, BUT EASILY AROUSABLE. SHE IS NOTED A/O X1. CONFUSED, DISORGANIZED, DISORIENTED. SHE CONTINUE ON 1:1 SUPERVISION FOR SAFETY. NO AGGRESSIVE/COMBATIVE BX NOTED AT THIS TIME. SAFETY WAS EMPHASIS. WILL CONTINUE TO MONITOR.
[2018-02-26 20:00] VITALS: BP 108/69
[2018-02-27] MEDS: LEVOTHYROXINE SODIUM 25 MCG TABLET PO SCH (07:00)
--- NOTE | 2018-02-27 07:22 | NUR ---
PATIENT SLEPT FOR APPROX 8.45 HRS THROUGH THE NIGHT. SHE REFUSED SYNTHROID QAM. SHE STATED, "GO AWAY, I AM TALKING TO MY CHILDREN. GET OUT OF MY HOUSE!" "GO AWAY, LET ME TALK TO MY CHILDREN". PATIENT WILL CONTINUE ON 1:1 SUPERVISION FOR SAFETY.
[2018-02-27 07:30] VITALS: BP 135/73
[2018-02-27] MEDS: QUETIAPINE FUMARATE 25 MG TABLET PO SCH ×5 (08:16→22:50)
[2018-02-27] MEDS: NITROFURANTOIN/NITROFURAN MAC 100 MG CAPSULE PO SCH ×2 (08:16→22:49)
[2018-02-27] MEDS: DOCUSATE SODIUM 100 MG CAPSULE PO SCH (08:16)
[2018-02-27] MEDS: DIVALPROEX 250 MG TABLET.DR PO SCH ×4 (08:16→18:55)
--- NOTE | 2018-02-27 16:12 | NUR ---
Activity group note: GOAL Patient will actively participate in the group activity of the day or relax in the activity room with fellow patients. INTERVENTION Parking Inspector invited patient to participate in a group activity consisting of board games, coloring books, and word puzzles held from 10-10:45 am in the activities room. RESPONSE Patient was asleep when approached to attend the group activity. Patient remained in their room during the group time. PLAN Patient will be invited to attend the next group activity.
[2018-02-27] MEDS ORDERED: OLANZAPINE 10 MG VIAL IM ONE (17:45)
[2018-02-27 20:00] VITALS: BP 122/72
[2018-02-27] MEDS: ATORVASTATIN 10 MG TABLET PO SCH (22:49)
[2018-02-27] MEDS: CLONAZEPAM 0.5 MG TABLET PO PRN (22:50)
--- NOTE | 2018-02-28 06:07 | NUR ---
Pt is still confused, continues to req to call her . Pt believes that the caregiver Andry is keeping her from speaking to her . Pt believes that Andry wants to "control their life" and orchestrated her being here by making "up lies". Pt is upset with her daughter Sangeeta because she "seems to think that it is ok" for the patient to be in hospital. Pt would like to discuss what is happening with her in a meeting with her family. Pt would like to get her own place and her own caregiver or return home with her own caregiver. Pt refused to shower, pt seemed irritated to be on 1:1 and stated "stop following me around". Pt complied with taking her meds. Pt is still focused on wanting to go home. I will continue to monitor.
[2018-02-28 07:30] VITALS: BP 124/59
[2018-02-28] MEDS: DOCUSATE SODIUM 100 MG CAPSULE PO SCH (08:51)
[2018-02-28] MEDS: NITROFURANTOIN/NITROFURAN MAC 100 MG CAPSULE PO SCH ×2 (08:51→22:04)
[2018-02-28] MEDS: LEVOTHYROXINE SODIUM 25 MCG TABLET PO SCH (08:51)
[2018-02-28] MEDS: QUETIAPINE FUMARATE 25 MG TABLET PO SCH ×4 (08:51→22:04)
[2018-02-28] MEDS: DIVALPROEX 250 MG TABLET.DR PO SCH ×3 (08:51→16:37)
[2018-02-28 16:44] VITALS: BP 139/61
[2018-02-28 19:45] VITALS: BP 141/72
[2018-02-28] MEDS: ATORVASTATIN 10 MG TABLET PO SCH (22:03)
[2018-03-01 07:30] VITALS: BP 124/67
[2018-03-01] MEDS: QUETIAPINE FUMARATE 25 MG TABLET PO SCH ×4 (08:59→20:16)
[2018-03-01] MEDS: NITROFURANTOIN/NITROFURAN MAC 100 MG CAPSULE PO SCH (09:00)
[2018-03-01] MEDS: DOCUSATE SODIUM 100 MG CAPSULE PO SCH (09:00)
[2018-03-01] MEDS: LEVOTHYROXINE SODIUM 25 MCG TABLET PO SCH (09:00)
[2018-03-01] MEDS: DIVALPROEX 250 MG TABLET.DR PO SCH ×3 (09:00→17:45)
[2018-03-01] MEDS: CLONAZEPAM 0.5 MG TABLET PO PRN (14:25)
[2018-03-01 15:32] VITALS: BP 123/104
--- NOTE | 2018-03-01 17:46 | NUR ---
GPS: Nursing Notes: Mood Disturbance: Manic/Labile: patient is awake and responding to her name, confused, disoriented, wandering around the unit aimlessly, stating "I need to go home to take care of ..", episodes of pushing away the sitter, unpredictable behavior, episode of scratching staff when trying to redirected her, impaired judgment, poor insight, gets easily irritable when redirected, unable to formulate a viable plan for self care, episode of violent outburst without provocation, believes that her car is parked outside the unit, continue with treatment plan.
[2018-03-01] MEDS: ATORVASTATIN 10 MG TABLET PO SCH (20:16)
[2018-03-02] MEDS: LEVOTHYROXINE SODIUM 25 MCG TABLET PO SCH (07:00)
[2018-03-02 07:30] VITALS: BP 119/62
[2018-03-02] MEDS: DOCUSATE SODIUM 100 MG CAPSULE PO SCH (08:46)
[2018-03-02] MEDS: DIVALPROEX 250 MG TABLET.DR PO SCH ×4 (08:46→20:22)
[2018-03-02] MEDS: QUETIAPINE FUMARATE 25 MG TABLET PO SCH ×4 (08:47→20:22)
[2018-03-02] MEDS: CLONAZEPAM 0.5 MG TABLET PO PRN (12:37)
--- NOTE | 2018-03-02 14:29 | NUR ---
Discharge Planning: parks and recreation worker was able to get in touch with Stefania [[phone]], cdl program coordinator, at [facility]. Per Stefania, she can come out , March 05 at 9:00am to assess patient. parks and recreation worker will continue to plan for a safe and proper discharge.
[2018-03-02] MEDS ORDERED: OLANZAPINE 10 MG VIAL IM STA (15:49)
--- NOTE | 2018-03-02 15:49 | NUR ---
GPS: Nursing Notes: Severe Agitation: Patient is restless, disorganized, confused, stated "I want to go home to see my ..", violent outburst without provocation, kicking staff, trying to scratch staff, resistant with nursing care, restless behavior, unable to follow directions, poor anger management, Dr. Reeves covering for Dr. Clements was paged, continue to monitor for safety, continue with treatment plan.
--- NOTE | 2018-03-02 16:08 | NUR ---
GPS: Nursing Notes: Chemical Restraint: Patient continue to be agitated, poor anger management, poor impulse control, resistant with nursing care, wandering aimlessly around the unit, stating "I need to go home to see my ..", redirected and reoriented her, but continue to be unable to follow directions, restless behavior, Dr. Reeves ordered: Zyprexa 5mg IM STAT x1, continue to monitor for safety, B/P = 125/67, 96, continue with treatment plan.
--- NOTE | 2018-03-02 16:38 | NUR ---
GPS: Nursing Notes: Reassessment of Chemical Restraint: Patient became calm, following staff directions, continue to be disoriented, but less aggressive, medication IM was effective, B/P=138/89, 105, continue with 1:1 sitter for safety, continue with treatment plan.
[2018-03-02 16:55] VITALS: BP 125/67
[2018-03-02] MEDS: ATORVASTATIN 10 MG TABLET PO SCH (20:22)
[2018-03-02 20:24] VITALS: BP 144/73
[2018-03-03] MEDS: LEVOTHYROXINE SODIUM 25 MCG TABLET PO SCH (06:53)
[2018-03-03] MEDS: CLONAZEPAM 0.5 MG TABLET PO PRN ×4 (07:58→23:02)
[2018-03-03 08:00] VITALS: BP 123/60
[2018-03-03] MEDS: DOCUSATE SODIUM 100 MG CAPSULE PO SCH (08:24)
[2018-03-03] MEDS: DIVALPROEX 250 MG TABLET.DR PO SCH ×4 (08:24→20:04)
[2018-03-03] MEDS: QUETIAPINE FUMARATE 25 MG TABLET PO SCH ×2 (08:24→13:15)
[2018-03-03] MEDS ORDERED: OLANZAPINE 10 MG VIAL IM STA (11:53)
--- NOTE | 2018-03-03 11:53 | NUR ---
GPS: Nursing Notes: Severe Agitation: patient is awake and responding to her name, poor anger management, violent outburst without provocation, overly disruptive by shouting "I need to go to take care of my ...", "My car is parked outside..", banging the window with the bedside table, stating "I am leaving.. I am going to break this window..", "Get away from me...", throwing napkin box and water bottle at staff, restless behavior, setting limits, but unable to be redirected, kicking and punching when trying to reorient and redirect to reality, Dr. Reeves covering for Dr. Tyree rodriguez, continue with 1:1 sitter for safety, continue with treatment plan.
--- NOTE | 2018-03-03 12:11 | NUR ---
GPS: Nursing Notes: Chemical Restraint: Patient continue to be overly disruptive by being aggressive toward staff, trying to break the window with the bedside table by banging the window with it, kicking and punching staff when trying to redirected her, poor anger management, unable to be redirected, restless behavior, poor insight, impaired judgment, Dr. Reeves order: Zyprexa 5mg IM STAT X1, continue with 1:1 sitter for safety, continue with treatment plan.
--- NOTE | 2018-03-03 12:31 | NUR ---
GPS: Nursing Notes: Reassessment of Chemical Restraint: Patient became calm, following staff directions, continue with 1:1 sitter for safety, B/P=118/56, P=74, R=18, medication IM was effective, continue with treatment plan.
[2018-03-03 16:00] VITALS: BP 117/56
[2018-03-03] MEDS: OLANZAPINE ZYDIS 5 MG TAB.RAPDIS PO SCH (17:24)
[2018-03-03 19:30] VITALS: BP 117/58
[2018-03-03] MEDS: ATORVASTATIN 10 MG TABLET PO SCH (20:04)
[2018-03-03] MEDS ORDERED: OLANZAPINE ZYDIS 5 MG TAB.RAPDIS PO SCH (21:00)
[2018-03-03] MEDS ORDERED: LORAZEPAM 2 MG/1 ML VIAL IM ONE (23:05)
[2018-03-03] MEDS ORDERED: HALOPERIDOL LACTATE 5 MG/1 ML VIAL IM ONE (23:05)
[2018-03-03] MEDS ORDERED: diphenhydrAMINE 50 MG/1 ML VIAL IM ONE (23:10)
--- NOTE | 2018-03-04 01:23 | NUR ---
PT IS VERY AGITATED, UNABLE TO REDIRECT, 1:1 SITTER AT HER SIDE. PT HAS BEEN PACING, DOES NOT WANT TO GO BACK TO HER ROOM, INSTEAD PT GOING TO ROOM TO ROOM. OFFERED KLONOPIN EARLIER BUT REFUSED, MEDICINE WAS WASTED. DR. RICHARDS MADE AWARE WITH ORDER TO GIVE ATIVAN IM, BENADRYL IM AND HALDOL IM. CONTINUED TO MONITOR.
--- NOTE | 2018-03-04 06:39 | NUR ---
PT SLEPT 5.0 HRS. 1:1 SITTER AT BEDSIDE. SAFETY MEASURES MAINTAINED THROUGHOUT SHIFT.
[2018-03-04 07:30] VITALS: BP 148/72
[2018-03-04] MEDS: LEVOTHYROXINE SODIUM 25 MCG TABLET PO SCH (09:34)
[2018-03-04] MEDS: DOCUSATE SODIUM 100 MG CAPSULE PO SCH (09:34)
[2018-03-04] MEDS: DIVALPROEX 250 MG TABLET.DR PO SCH ×4 (09:35→20:12)
[2018-03-04] MEDS: OLANZAPINE ZYDIS 5 MG TAB.RAPDIS PO SCH ×3 (09:35→20:12)
--- NOTE | 2018-03-04 10:30 | NUR ---
Discharge Planning Note: KENDALL placed call to [facility] ([phone]). KENDALL spoke with Shara at the medical front desk specialist to confirm if Stefania, placement director, will be coming to assess the patient tomorrow (03/05/18) at 9am. Shara confirmed. KENDALL will continue to follow-up.
--- NOTE | 2018-03-04 14:55 | NUR ---
ACTIVITY GROUP NOTE: GOAL Patient will actively participate in the group activity of the day or relax in the activity room with fellow patients. INTERVENTION Shipping Assistant invited patient to participate in a group activity consisting of filling out leaves of gratefulness or crossword puzzles and music held from 11-11:45 am in the activities room. RESPONSE Patient was asleep when approached to attend the group activity. Patient remained in her room during the group activity time. PLAN Patient will be invited to attend the next group activity.
[2018-03-04 16:05] VITALS: BP 131/64
[2018-03-04 19:30] VITALS: BP 121/58
--- NOTE | 2018-03-04 19:35 | NUR ---
RECEIVED PATIENT IN THE DAY ROOM WATCHING TV CALM AND COOPERATIVE. SHE CONTINUE ON 1:1 SUPERVISION FOR SAFETY. SHE IS NOTED A/O X 1, CONFUSED, DISORGANIZED. SAFETY WAS EMPHASIS, WILL CONTINUE TO MONITOR.
[2018-03-04] MEDS: ATORVASTATIN 10 MG TABLET PO SCH (20:12)
--- NOTE | 2018-03-05 06:58 | NUR ---
PATIENT SLEPT FOR APPROX 7.30 HRS THROUGH THE NIGHT. NO AGGRESSIVE/COMBATIVE BX WAS NOTED OR REPORTED DURING THE SHIFT. PT WILL CONTINUE ON 1:1 SUPERVISION.
[2018-03-05 07:30] VITALS: BP 126/60
[2018-03-05] MEDS: LEVOTHYROXINE SODIUM 25 MCG TABLET PO SCH (09:05)
[2018-03-05] MEDS: DIVALPROEX 250 MG TABLET.DR PO SCH ×4 (09:09→21:03)
[2018-03-05] MEDS: DOCUSATE SODIUM 100 MG CAPSULE PO SCH (09:09)
[2018-03-05] MEDS: OLANZAPINE ZYDIS 5 MG TAB.RAPDIS PO SCH ×4 (09:09→21:03)
[2018-03-05 16:10] VITALS: BP 138/71
[2018-03-05] MEDS: ATORVASTATIN 10 MG TABLET PO SCH (21:03)
[2018-03-05] MEDS: CLONAZEPAM 0.5 MG TABLET PO PRN (21:43)
[2018-03-06] MEDS: LEVOTHYROXINE SODIUM 25 MCG TABLET PO SCH (06:36)
[2018-03-06 07:30] VITALS: BP 113/81
[2018-03-06] MEDS: DOCUSATE SODIUM 100 MG CAPSULE PO SCH (08:03)
[2018-03-06] MEDS: DIVALPROEX 250 MG TABLET.DR PO SCH ×4 (08:03→20:07)
[2018-03-06] MEDS: OLANZAPINE ZYDIS 5 MG TAB.RAPDIS PO SCH ×4 (08:03→20:07)
[2018-03-06] MEDS ORDERED: LORAZEPAM 2 MG/1 ML VIAL IM ONE (10:45)
[2018-03-06] MEDS ORDERED: HALOPERIDOL LACTATE 5 MG/1 ML VIAL IM ONE (10:45)
--- NOTE | 2018-03-06 11:00 | NUR ---
PT IS CONFUSED, AGITATED, DEMANDS TO BE LET OUT TO GO HOME. PT WAS NOTED TO COME UP TO ANOTHER PATIENT AND WAS TRYING TO GET HER WALKER. WHEN REDIRECTING, PT BECAME MORE UPSET AND AGITATED, YELLING "LEAVE ME ALONE!, I'M NOT TAKING HER STUFF, I JUST NEED TO MOVE THE CHAIR!" AND PATIENT ATTEMPTED TO MOVE THE CHAIR WITH ANOTHER PATIENT IN IT. PT IS NOT ABLE TO COMPREHEND REDIRECTIONS, BECAME COMBATIVE WITH STAFF. DR. RICHARDS CONTACTED, ORDER FOR ATIVAN 1MG AND HALDOL 2.5 MG IM WAS OBTAINED.
[2018-03-06 16:00] VITALS: BP 147/60
[2018-03-06] MEDS: ATORVASTATIN 10 MG TABLET PO SCH (20:07)
[2018-03-07] MEDS: LEVOTHYROXINE SODIUM 25 MCG TABLET PO SCH (06:22)
[2018-03-07 07:30] VITALS: BP 130/46
[2018-03-07] MEDS: DIVALPROEX 250 MG TABLET.DR PO SCH ×4 (08:35→20:11)
[2018-03-07] MEDS: OLANZAPINE ZYDIS 5 MG TAB.RAPDIS PO SCH ×4 (08:35→20:12)
[2018-03-07] MEDS: DOCUSATE SODIUM 100 MG CAPSULE PO SCH (08:35)
[2018-03-07 16:13] VITALS: BP 119/62
[2018-03-07] MEDS: ATORVASTATIN 10 MG TABLET PO SCH (20:12)
[2018-03-07 20:44] VITALS: BP 101/71
[2018-03-07 20:47] VITALS: BP 135/66
[2018-03-08] MEDS: CLONAZEPAM 0.5 MG TABLET PO PRN (00:34)
[2018-03-08 07:30] VITALS: BP 132/54
[2018-03-08] MEDS: LEVOTHYROXINE SODIUM 25 MCG TABLET PO SCH (07:44)
[2018-03-08] MEDS: OLANZAPINE ZYDIS 5 MG TAB.RAPDIS PO SCH ×4 (08:49→20:23)
[2018-03-08] MEDS: DIVALPROEX 250 MG TABLET.DR PO SCH ×4 (08:49→20:23)
[2018-03-08] MEDS: DOCUSATE SODIUM 100 MG CAPSULE PO SCH (08:49)
--- NOTE | 2018-03-08 15:28 | NUR ---
Patient had episode of on and off agitation. Redirectable. Visitor came over to see patient.
[2018-03-08 16:00] VITALS: BP 123/58
--- NOTE | 2018-03-08 18:42 | NUR ---
Patient wanted to get out, banging the door and trying to open the door. Did not want to go to her room. Carried patient to the room. Did not let her go until she was calm. Patient went to the chair and sat. Patient was calm in bed.
[2018-03-08 20:00] VITALS: BP 155/69
[2018-03-08] MEDS: ATORVASTATIN 10 MG TABLET PO SCH (20:23)
[2018-03-09] MEDS: CLONAZEPAM 0.5 MG TABLET PO PRN (02:49)
--- NOTE | 2018-03-09 02:49 | NUR ---
GPS: Pt.is anxious,restless,confused,disoriented and disorganized. Easily agitated when being re-directed. Pt.is attempting to push the doors to get out. Sitter constantly re-directing pt. Klonopin 0.5mg given PO for anxiety and taken after some persuasion from staff. Will monitor effectiveness and for further escalation of behavior.
[2018-03-09] MEDS: LEVOTHYROXINE SODIUM 25 MCG TABLET PO SCH (06:07)
[2018-03-09 08:00] VITALS: BP 131/74
[2018-03-09] MEDS: DIVALPROEX 250 MG TABLET.DR PO SCH ×4 (08:31→22:14)
[2018-03-09] MEDS: DOCUSATE SODIUM 100 MG CAPSULE PO SCH (08:31)
[2018-03-09] MEDS: OLANZAPINE ZYDIS 5 MG TAB.RAPDIS PO SCH ×4 (08:32→22:14)
--- NOTE | 2018-03-09 12:11 | NUR ---
Discharge Planning Note: At 0811, this insurance writer attempted to contact Stefania at [facility] ([phone]) to discuss discharge planning. There was no answer, so SW left a message. At 1015, KENDALL placed call to [facility] ([phone]) to discuss discharge planning. Per spa receptionist, Shara, there are no administrators in the office to speak with this insurance writer. SW left message for a call back. At 1115, KENDALL placed another call to Stefania at [facility] ([phone]) to discuss discharge planning. SW left another message. KENDALL consulted with treatment team and Radioisotope Technician, Lis Owen. Team agreed SNF placement for pt would be safest discharge plan at this time. KENDALL faxed SNF inquiries to the following facilities: [facility]: ; Attn: Lasha Chirinos: ; Attn: [facility]: ; Attn: [facility]: ; Attn: Jael At 1130, KENDALL placed call to pt's daughter/DPOASangeeta ([phone]) to inform her of discharge planning process. Informed pt's dtr about potential need for SNF placement. Pt's dtr became upset and stated, "She cannot be ready to go." The insurance writer educated about Medicare Denial Letter and her right to Appeal Discharge through Medicare. Dtr refused SNF placement for the patient. KENDALL alerted Dr. Clements about daughter's wishes to speak with him. KENDALL will continue to follow-up with pt's family, [facility], and SNF inquiries. Radioisotope Technician, Donnie Owen aware. Addendum: 03/09/18 at 1451 by ABEL FISHER At 1300, Received report from [place] and they are unable to accommodate patient at this time due to current weather/fire conditions in their area. [facility] stated they were able to accept the patient at this time At 1400, KENDALL placed call to pt's daughter, Sangeeta, with SS Director, Lis Owen present. Educated and discussed with the daughter the patient's prognosis, and informed her of plan for case to be reviewed by Dr. Oliva. Provided opportunity for pt's dtr to express and ventilate her feelings and concerns about placement. Explored options with the dtr in regards to SNF vs. SENIOR CARE placement post-discharge. Informed dtr of accepting facilities. Dtr agreed to SNF placement post-discharge and asked that inquiry be sent to [facility] [phone: [phone]; fax: [phone] Attn: Ivette]. KENDALL will continue to follow-up with facilities and dtr in regards to accepting SNFs.
[2018-03-09 16:37] VITALS: BP 118/83
[2018-03-09 20:00] VITALS: BP 147/65
[2018-03-09] MEDS: ATORVASTATIN 10 MG TABLET PO SCH (22:14)
[2018-03-10] MEDS: LEVOTHYROXINE SODIUM 25 MCG TABLET PO SCH (06:47)
[2018-03-10 07:30] VITALS: BP 130/64
[2018-03-10] MEDS: DOCUSATE SODIUM 100 MG CAPSULE PO SCH (09:23)
[2018-03-10] MEDS: DIVALPROEX 250 MG TABLET.DR PO SCH ×3 (09:23→16:09)
[2018-03-10] MEDS: OLANZAPINE ZYDIS 5 MG TAB.RAPDIS PO SCH ×3 (09:23→16:09)
--- NOTE | 2018-03-10 10:12 | NUR ---
Discharge Note: Patient will be discharged back to [facility] [[address], [place] [address]; ] via private transportation at 3pm. Spoke with Stefania at the facility who states they are ready to accept the patient today and has arranged the transportation for the patient. Please call the patients pharmacy: [facility] ([phone]) to order the patients prescriptions. Spoke with patients daughter/DPOA, Sangeeta Kendrick ([phone]) who is aware and agreeable with discharge plans. Patient is alert and oriented x1 and is cooperative. Patient will continue to follow-up with her Primary Care Physician, Dr. Vero Osuna [[address], [place] [address]; [phone]]. Patient will also continue to follow-up with her outpatient Psychiatrist, Dr. Bud Villasenor [[address], [place] [address]; ]. Patient was also provided with outpatient mental health resources to [facility] , Barbara Santos , and the [place] [facility]icide Prevention [facility] . Patient and her family were also provided with the [employer] 18/11 Hotline ( ). Addendum: 03/10/18 at 1047 by ABEL FISHER Updated Pharmacy #: [phone]. Please call to order patient's prescriptions.
--- NOTE | 2018-03-10 13:34 | NUR ---
1300 Called [facility] facility spoke with Business Process Analyst. Jesus - report given regarding patient medical and psychiatric condition, prescription already called in to patient pharmacy and will be ready anytime for cigar packer and picker- Business Process Analyst Jesus verbalized understanding.
[2018-03-10 16:00] VITALS: BP 116/56
--- NOTE | 2018-03-10 16:28 | NUR ---
3116 PATIENT DISCHARGED TO [facility], ALERT AND OX2, CALM, COMPLIANT WITH MEDICATIONS.DENIES SI /HI. NO DELUSION. NO HALLUCINATION NOTED. PATIENT WAS PICKED UP BY THE ACCOUNT EXECUTIVE SOFTWARE [facility].
== END 2018-03-10 16:15 | DRG 885 ==
LOC: ER 17:44 → GPS 19:47
PROVIDERS: ADMIT Psychiatry & Neurology Psychiatry; ATTEND Internal Medicine
DX: F23 Brief psychotic disorder (principal); N39.0 Urinary tract infection, site not specified; B96.20 Unspecified Escherichia coli [E. coli] as the cause of diseases classified elsewhere; Z16.11 Resistance to penicillins; Z16.29 Resistance to other single specified antibiotic; Z90.710 Acquired absence of both cervix and uterus; E78.5 Hyperlipidemia, unspecified; F03.90 Unspecified dementia, unspecified severity, without behavioral disturbance, psychotic disturbance, mood disturbance, and anxiety; I70.0 Atherosclerosis of aorta; E03.9 Hypothyroidism, unspecified; Z74.09 Other reduced mobility; E88.09 Other disorders of plasma-protein metabolism, not elsewhere classified; Z86.59 Personal history of other mental and behavioral disorders
CPT/HCPCS: 36415; 70450; 71045; 80164; 84443; 85025; 87077; 87086; 93005; A4663; G0480; G0480-TC; J1200; J1630; J2060; J2358; J3490